=== PATIENT | female | born 1955 | race Caucasian/White ===

== ENCOUNTER 2020-08-28 07:32 | Day surgery (SDC) | payer MEDICARE ==
[2020-08-27 13:21] VITALS: BMI 30.7
[2020-08-28] MEDS ORDERED: Midazolam HCl 2 mg/2 ml Vial ONE (08:13)
[2020-08-28] MEDS ORDERED: Fentanyl 100 MCG/2 ML VIAL ONE ×4 (09:04→12:06)
[2020-08-28] MEDS ORDERED: Dexamethasone 20 MG/5 ML VIAL ONE (12:43)
[2020-08-28] MEDS ORDERED: Lidocaine 1% PF 5 ML VIAL ONE (12:43)
[2020-08-28] MEDS ORDERED: Rocuronium Bromide 10 MG/ML (10ML VIAL) ONE (12:43)
[2020-08-28] MEDS ORDERED: Glycopyrrolate 0.2 MG/ML 5 ML SYRINGE ONE (12:43)
[2020-08-28] MEDS ORDERED: ePHEDrine 50 MG/ML VIAL ONE (12:43)
[2020-08-28] MEDS ORDERED: Ondansetron PF 4 MG/2 ML Vial ONE (12:43)
[2020-08-28] MEDS ORDERED: PROPOFOL 200 MG/20 ML VIAL ONE (12:43)
[2020-08-28] MEDS ORDERED: Acetaminophen/Codeine 30-300mg Tablet ONE (12:57)
--- NOTE | 2020-08-29 05:18 | OP ---
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 PROCEDURES PERFORMED: L4-L5 laminectomy, posterolateral arthrodesis, pedicle screw instrumentation, demineralized bone matrix, local morselized autograft, L4-5. DESCRIPTION OF PROCEDURE: The patient was brought to the operating room and intubated. She was rolled in a prone position on gel-filled chest rolls. An incision was made exposing L4 and L5 and the level was confirmed by x-ray. We performed complete L5 and inferior L4 laminectomies, completely decompressing the neural elements. Next, pedicle screws were placed at right L4 and right L5 using lateral fluoroscopic guidance and the position was confirmed by x-ray. The gita was secured between the screws, connected by nuts, which were final tightened. The wound was then extensively irrigated. MAC hemostasis was secured. A combination of demineralized bone matrix and local morselized autograft was laid over the lamina and posterolateral surfaces for the purpose of arthrodesis. Vancomycin powder was applied, and the wound was closed in anatomic layers. Job ID: [id number]
== END 2020-08-28 14:15 | disposition home or self-care (01) ==
LOC: SDC 07:32
PROVIDERS: ATTEND Neurological Surgery
PROC: 0SG0071 Fusion of Lumbar Vertebral Joint with Autologous Tissue Substitute, Posterior Approach, Posterior Column, Open Approach (ICD-10-PCS; principal; 2020-08-28)
DX: M43.16 Spondylolisthesis, lumbar region (principal); M51.36 Other intervertebral disc degeneration, lumbar region; E78.5 Hyperlipidemia, unspecified; Z79.82 Long term (current) use of aspirin; Z79.899 Other long term (current) drug therapy; Z91.048 Other nonmedicinal substance allergy status
CPT/HCPCS: 76000; C1713; C1768; J0690; J1100; J2250; J2405; J2704; J3010; J3370; J3490

== ENCOUNTER 2020-09-11 12:28 | Outpatient (CLI) | payer MEDICARE ==
--- NOTE | 2020-09-11 13:37 | RAD ---
XR Lumbar Spine 2 Or 3 View History: Spondylolisthesis Comparison: Lumbar spine MRI April 2020 Findings: Right unilateral L4/L5 posterior spinal fusion hardware with transpedicular screws and inte rconnecting rods. Minimal anterolisthesis is slightly improved. Right L4/L5 degenerative disc space height loss asymmetric to the left-sided disc space. SI joints ar e unremarkable. Low-grade dextroscoliosis upper lumbar spine. No acute fracture. Impression: Satisfactory postoperative appearance.
== END 2020-09-11 12:29 | disposition home or self-care (01) ==
LOC: TBSIIMAG 12:28
PROVIDERS: ATTEND Neurological Surgery
DX: M43.16 Spondylolisthesis, lumbar region (principal); Z98.890 Other specified postprocedural states
CPT/HCPCS: 72100